=== PATIENT | female | born 2005 | race Caucasian/White ===

== ENCOUNTER 2024-04-06 19:53 | Emergency (ER) | payer OTHER ==
[~2024-04-06] VITALS: Ht 157.5 cm; Wt 93.5 kg
[~2024-04-06 19:53] MED LIST: ALBU17AE27 IH; [UNRECOGNIZED DRUG - OTHER]
[2024-04-06 19:55] VITALS: BP 141/104; PULSE 110; RESP 16; TEMP 98.2
[2024-04-06] MEDS: LIDOCAINE 1% 10 ML VIAL SQ ONE (21:29)
[2024-04-06] MEDS ORDERED: CEPH-558 PO (21:45)
[2024-04-06] MEDS ORDERED: BACTDSB PO (21:45)
== END 2024-04-06 21:51 | disposition home or self-care (01) ==
LOC: EMS 19:53
DX: L02.213 Cutaneous abscess of chest wall (principal); J45.909 Unspecified asthma, uncomplicated; E11.9 Type 2 diabetes mellitus without complications
CPT/HCPCS: 99283; 10060; 82962; J3490